=== PATIENT | female | born 1945 | race Caucasian/White ===

== ENCOUNTER 2017-01-10 10:48 | Outpatient (CLI) | payer BC | END 2017-01-10 20:25 | disposition home or self-care (01) | LOC: SMA 10:48 | PROVIDERS: ATTEND Internal Medicine | DX: Z12.31 Encounter for screening mammogram for malignant neoplasm of breast (principal) | CPT/HCPCS: G0202 ==

== ENCOUNTER 2018-01-22 12:15 | Outpatient (CLI) | payer BC | END 2018-01-22 20:47 | disposition home or self-care (01) | LOC: SMA 12:15 | PROVIDERS: ATTEND Internal Medicine | DX: Z12.31 Encounter for screening mammogram for malignant neoplasm of breast (principal) | CPT/HCPCS: 77067 ==

== ENCOUNTER 2018-09-11 23:55 | Emergency (ER) | payer BC ==
[~2018-09-11] VITALS: Ht 154.9 cm; Wt 74.8 kg
[2018-09-12 00:08] VITALS: BP_SYST 177
[2018-09-12] MEDS ORDERED: LOVA20TA2 PO (00:18)
[2018-09-12] MEDS ORDERED: TRAM50TA2 PO (00:18)
[2018-09-12] MEDS ORDERED: DULO60CA41 PO (00:18)
[2018-09-12] MEDS ORDERED: AMLO5TAB4 PO (00:19)
[2018-09-12] MEDS ORDERED: FOSI40TA5 PO (00:19)
[2018-09-12] MEDS ORDERED: GLU500 PO (00:20)
[2018-09-12] MEDS ORDERED: NACL 0.9% 1,000 ML IV ONE (00:31)
[2018-09-12] MEDS ORDERED: DIPHENHYDRAMINE INJ 50 MG/ML VIAL IVP ONE (00:45)
[2018-09-12] MEDS ORDERED: KETOROLAC TROMETHAMINE 30 MG VIAL IVP ONE (00:45)
[2018-09-12] MEDS ORDERED: MORPHINE 4 MG/ML INJ. SYRINGE IVP ONE (00:45)
[2018-09-12 01:32] LABS: BASOPHILS # (AUTO) 0.1 K/uL (0.0-0.2); BASOPHILS % (AUTO) 0.7 % (0.0-2.0); EOSINOPHILS # (AUTO) 0.1 K/uL (0.0-0.4); EOSINOPHILS % (AUTO) 0.6 % (0.0-4.0); HEMATOCRIT 39.4 % (36-48); HEMOGLOBIN 13.3 g/dL (12.0-16.0); LYMPHOCYTES # (AUTO) 2.6 K/uL (1.0-5.5); LYMPHOCYTES % (AUTO) 24.7 % (20.5-51.5); MEAN CORPUSCULAR HEMOGLOBIN 30 pg (27-31); MEAN CORPUSCULAR HGB CONC 34 % (32-36); MEAN CORPUSCULAR VOLUME 89 fL (79.0-98.0); MONOCYTES # (AUTO) 1.1 K/uL (0.0-1.0); MONOCYTES % (AUTO) 10.8 % (1.7-9.3); NEUTROPHILS # (AUTO) 6.6 K/uL (1.8-7.7); NEUTROPHILS % (AUTO) 63.2 % (40.0-70.0); PLATELET COUNT (AUTO) 264 K/uL (130-430); RED BLOOD CELL COUNT(AUTO) 4.44 MIL/uL (4.2-6.2); RED CELL DISTRIBUTION WIDTH 13.7 % (9.0-15.0); WHITE BLOOD COUNT (AUTO) 10.4 K/uL (4.8-10.8)
[2018-09-12 01:46] LABS: ANION GAP 10 (5-15); CALCIUM 9.6 mg/dL (8.4-11.0); CHLORIDE 100 mmol/L (98-107); CREATININE 0.62 mg/dL (0.55-1.30); GLUCOSE 128 mg/dL (70-99); POTASSIUM 3.4 mmol/L (3.5-5.1); SODIUM SERUM 139 mmol/L (136-145); UREA NITROGEN, BLOOD 11 mg/dL (8-21)
[2018-09-12 01:53] LABS: ALANINE AMINOTRANSFERASE 20 U/L (12-78); ASPARTATE AMINOTRANSFERASE 19 U/L (10-37); TOTAL BILIRUBIN 0.4 mg/dL (0.0-1.0)
[2018-09-12 02:32] LABS: BILIRUBIN,URINE NEGATIVE (NEGATIVE); CLARITY/URINE CLEAR (CLEAR); COLOR,URINE YELLOW (YELLOW); GLUCOSE,URINE NEGATIVE (NEGATIVE); KETONES,URINE NEGATIVE (NEGATIVE); LEUKOCYTE ESTERASE ,URINE NEGATIVE (NEGATIVE); NITRITE, URINE NEGATIVE (NEGATIVE); PROTEIN URINE NEGATIVE (NEGATIVE); UROBILINOGEN,URINE 0.2 (0.2-1.0)
[2018-09-12 02:33] LABS: BLOOD, URINE TRACE (NEGATIVE)
[2018-09-12 02:34] LABS: BACTERIA,URINE FEW /HPF (None Seen); WBC,URINE 0-3 /HPF (0-3)
[2018-09-12 02:53] VITALS: BP_SYST 177
== END 2018-09-12 02:53 | disposition home or self-care (01) ==
LOC: SED 23:55
DX: R51 Headache (principal); E11.9 Type 2 diabetes mellitus without complications; E78.00 Pure hypercholesterolemia, unspecified; M79.7 Fibromyalgia; Z88.2 Allergy status to sulfonamides; Z79.899 Other long term (current) drug therapy
CPT/HCPCS: 36415; 80053; 81000; 85025; 96374; 96375; 99283; J1200; J1885; J2270; J7030

== ENCOUNTER 2019-12-11 10:35 | Outpatient (CLI) | payer BC ==
[~2019-12-11 10:35] MED LIST: AMLO5TAB4 PO; DULO60CA41 PO; FOSI40TA5 PO; GLU500 PO; LOVA20TA2 PO; TRAM50TA2 PO
== END 2019-12-11 20:25 | disposition home or self-care (01) ==
LOC: SMA 10:35
PROVIDERS: ATTEND Internal Medicine
DX: Z12.31 Encounter for screening mammogram for malignant neoplasm of breast (principal); N64.89 Other specified disorders of breast
CPT/HCPCS: 77067

== ENCOUNTER 2021-04-05 09:53 | Outpatient (CLI) | payer BC | END 2021-04-05 18:58 | disposition home or self-care (01) | LOC: SMA 09:53 | PROVIDERS: ATTEND Internal Medicine | DX: Z12.31 Encounter for screening mammogram for malignant neoplasm of breast (principal); N64.89 Other specified disorders of breast | CPT/HCPCS: 77067 ==

== ENCOUNTER 2023-12-08 14:07 | Emergency (ER) | payer BC ==
[~2023-12-08] VITALS: Ht 154.9 cm; Wt 71.7 kg
[~2023-12-08 14:07] MED LIST changes: -DULO60CA41 PO; +DULO60CA42 PO; -FOSI40TA5 PO; +FOSI40TA71 PO
[2023-12-08 14:33] VITALS: BP_SYST 128; PULSE 84; RESP 16; TEMP 97.7; O2SAT 94
[2023-12-08] MEDS ORDERED: METH-634 PO (17:57)
[2023-12-08] MEDS: MORPHINE 4 MG INJ. 4 MG/ML VIAL IM ONE (18:00)
[2023-12-08 18:16] VITALS: BP_SYST 128; PULSE 84; RESP 16; TEMP 97.7; O2SAT 94
== END 2023-12-08 18:18 | disposition home or self-care (01) ==
LOC: SED 14:07
DX: M54.2 Cervicalgia (principal); G89.29 Other chronic pain; E11.9 Type 2 diabetes mellitus without complications; I10 Essential (primary) hypertension; Z88.2 Allergy status to sulfonamides
CPT/HCPCS: 99285; 93880; 96372; J2270